=== PATIENT | female | born 1975 | race Native Hawaiian/Other Pacific Islander ===

== ENCOUNTER 2022-09-03 12:24 | Emergency (ER) | payer MEDICARE ==
[~2022-09-03] VITALS: Ht 157.5 cm; Wt 70.1 kg
[2022-09-03 12:25] VITALS: BP 132/84
[2022-09-03] MEDS ORDERED: HYDR-3363 PO (14:45)
[2022-09-03] MEDS ORDERED: PRED20TA PO (14:45)
== END 2022-09-03 15:08 | disposition home or self-care (01) ==
LOC: M ED 12:24
DX: L30.9 Dermatitis, unspecified (principal); K21.9 Gastro-esophageal reflux disease without esophagitis; K50.90 Crohn's disease, unspecified, without complications; Z90.49 Acquired absence of other specified parts of digestive tract

== ENCOUNTER → 2022-10-05 | Outpatient (REF) | payer MEDICARE ==
[~2022-10-05] MED LIST: HYDR-3363 PO; PRED20TA PO
== END ==
LOC: M SFHCDERM 17:41
PROVIDERS: ATTEND Physician Assistant
DX: R21 Rash and other nonspecific skin eruption (principal)

== ENCOUNTER → 2022-10-12 | Outpatient (CLI) | payer MEDICARE ==
[2022-10-12 16:45] LABS: VITAMIN B12 LEVEL 401 PG/ML (211-911)
[2022-10-12 16:46] LABS: FREE T4 1.28 NG/DL (0.89-1.76)
[2022-10-12 19:28] LABS: HIV 1&2 SCREEN CENTAUR NEGATIVE (NEGATIVE)
== END ==
LOC: M LAB 15:26
PROVIDERS: ATTEND Physician Assistant
DX: L28.0 Lichen simplex chronicus (principal); Z79.899 Other long term (current) drug therapy

== ENCOUNTER → 2022-11-29 | Outpatient (REF) | payer MEDICARE, OTHER | LOC: M SFHCDERM 17:49 | PROVIDERS: ATTEND Nurse Practitioner Family | DX: F22 Delusional disorders (principal) ==

== ENCOUNTER 2023-05-01 20:27 | Emergency (ER) | payer OTHER ==
[~2023-05-01] VITALS: Ht 158.8 cm; Wt 65.4 kg
[2023-05-01 20:28] VITALS: TEMP 96.5
[2023-05-01] MEDS ORDERED: SUCR1ORA PO (20:36)
[2023-05-01 21:46] LABS: BASO # 0.1 10^3/uL (0.0-0.2); BASO % 1.2 % (0.0-1.0); EOS # 0.6 10^3/uL (0.0-0.5); EOS % 8.6 % (0.0-3.0); HEMATOCRIT 39.5 % (36.0-47.0); HEMOGLOBIN 13.3 g/dl (12.0-15.5); LYMPH # 2.3 10^3/uL (1.5-5.0); MEAN CORPUSCULAR HEMOGLOBIN 30.1 pg (27.0-33.0); MEAN CORPUSCULAR HGB CONC 33.7 g/dl (32.0-36.5); MEAN CORPUSCULAR VOLUME 89.4 fl (80.0-96.0); MONO # 0.6 10^3/uL (0.0-0.8); MONO % 7.4 % (2.0-8.0); NEUTROPHILS # 3.8 10^3/uL (1.5-8.5); NEUTROPHILS % 51.5 % (36.0-66.0); PLATELET COUNT, AUTOMATED 267 10^3/uL (150-450); RED BLOOD COUNT 4.42 10^6/uL (4.00-5.40); WHITE BLOOD COUNT 7.4 10^3/uL (4.0-10.0)
[2023-05-01] MEDS ORDERED: TETRACAINE 0.5% OPHTH SOLN 4ML OS ONE (22:00)
[2023-05-01] MEDS ORDERED: FLUORESCEIN OPHTH 1MG STRIP OS ONE (22:00)
[2023-05-01 22:14] LABS: LIPASE 54 U/L (12-53)
[2023-05-01 22:16] LABS: ALBUMIN 4.1 G/DL (3.2-5.2); ALKALINE PHOSPHATASE 108 U/L (46-116); ALT/SGPT 15 U/L (7.0-40); AST/SGOT 9 U/L (<34); BILIRUBIN,DIRECT 0.1 MG/DL (<0.4); BILIRUBIN,TOTAL 0.4 MG/DL (0.3-1.2); TOTAL PROTEIN 7.1 G/DL (5.7-8.2)
[2023-05-01 22:18] LABS: RSV AMPLIFICATION NEGATIVE (NEGATIVE)
[2023-05-01] MEDS ORDERED: NS 1,000 ML IV ONE (22:20)
[2023-05-01] MEDS ORDERED: PANTOPRAZOLE 40MG VIAL IV ONE (22:20)
[2023-05-01 23:11] LABS: CPK CREATINE PHOSPHOKINASE 141 U/L (34-145)
[2023-05-01 23:12] LABS: BLOOD UREA NITROGEN 9 MG/DL (9-23); CARBON DIOXIDE LEVEL 24 MMOL/L (20-31); CHLORIDE LEVEL 109 MMOL/L (98-107); CK-MB VALUE MASS < 1.0 NG/ML (<3.6); CREATININE FOR GFR 0.72 MG/DL (0.55-1.30); GLOMERULAR FILTRATION RATE > 60.0 (>58); GLUCOSE, FASTING 74 MG/DL (60-100); POTASSIUM SERUM 3.4 MMOL/L (3.5-5.1); SODIUM LEVEL 142 MMOL/L (136-145)
[2023-05-02] MEDS: GASTROGRAFIN SOLUTION 30ML PO SCH ×2 (00:08→00:33)
[2023-05-02] MEDS ORDERED: MORPHINE 2 MG/ML 1ML VIAL IV ONE (00:20)
[2023-05-02] MEDS ORDERED: ERYTHROMYCIN OPHTH OINT OS ONE (00:35)
[2023-05-02] MEDS ORDERED: ONDANSETRON 4MG 2ML VIAL IV ONE (00:45)
[2023-05-02] MEDS ORDERED: ISOVUE-370 76% 100ML VIAL As Ordered ONE (01:09)
[2023-05-02 02:45] VITALS: BP 102/57; O2SAT 98
[2023-05-02] MEDS ORDERED: SUCR1ORA PO (02:50)
[2023-05-02] MEDS ORDERED: ERYT5OIN25 OP (02:50)
[2023-05-02] MEDS ORDERED: PROT1TAB2 PO (02:50)
[2023-05-02] MEDS ORDERED: ONDA4TAB6 PO (03:03)
== END 2023-05-02 03:06 | disposition home or self-care (01) ==
LOC: M ED 20:27
DX: R55 Syncope and collapse (principal); S05.02XA Injury of conjunctiva and corneal abrasion without foreign body, left eye, initial encounter; K30 Functional dyspepsia; R10.9 Unspecified abdominal pain; K21.9 Gastro-esophageal reflux disease without esophagitis; I45.10 Unspecified right bundle-branch block; W10.8XXA Fall (on) (from) other stairs and steps, initial encounter; Z98.84 Bariatric surgery status; Z79.83 Long term (current) use of bisphosphonates; Z79.810 Long term (current) use of selective estrogen receptor modulators (SERMs); Z79.899 Other long term (current) drug therapy
CPT/HCPCS: 70450; 70486; 71045; 72125; 74177; 80047; 80048; 80076; 81001; 82550; 82553; 83605; 83690; 84484; 85025; 86850; 86900; 86901; 87086; 87631; 93005; 93041; 96361; 96374; 96375; 99285; C9113; J2405; Q9963; Q9967

== ENCOUNTER 2023-06-19 13:10 | Emergency (ER) | payer OTHER ==
[~2023-06-19] VITALS: Ht 157.5 cm; Wt 63.6 kg
[~2023-06-19 13:10] MED LIST changes: +ERYT5OIN25 OP; +ONDA4TAB6 PO; +PROT1TAB2 PO; +SUCR1ORA PO
[2023-06-19] MEDS ORDERED: OMEP10CASR PO (13:28)
[2023-06-19] MEDS ORDERED: ONDANSETRON 4MG 2ML VIAL As Ordered ONE (13:39)
[2023-06-19] MEDS ORDERED: NS 1,000 ML IV ONE (15:20)
[2023-06-19] MEDS ORDERED: PANTOPRAZOLE 40MG VIAL IV ONE (15:20)
[2023-06-19] MEDS ORDERED: ONDANSETRON 4MG 2ML VIAL IV ONE (15:20)
[2023-06-19 15:44] LABS: BASO # 0.1 10^3/uL (0.0-0.2); BASO % 1.3 % (0.0-1.0); EOS # 0.2 10^3/uL (0.0-0.5); EOS % 3.3 % (0.0-3.0); HEMATOCRIT 33.2 % (36.0-47.0); HEMOGLOBIN 11.4 g/dl (12.0-15.5); LYMPH # 1.6 10^3/uL (1.5-5.0); LYMPH % 36.5 % (24.0-44.0); MEAN CORPUSCULAR HEMOGLOBIN 30.6 pg (27.0-33.0); MEAN CORPUSCULAR HGB CONC 34.3 g/dl (32.0-36.5); MEAN CORPUSCULAR VOLUME 89.2 fl (80.0-96.0); MONO # 0.4 10^3/uL (0.0-0.8); MONO % 8.2 % (2.0-8.0); NEUTROPHILS # 2.3 10^3/uL (1.5-8.5); NEUTROPHILS % 50.5 % (36.0-66.0); PLATELET COUNT, AUTOMATED 241 10^3/uL (150-450); RED BLOOD COUNT 3.72 10^6/uL (4.00-5.40); WHITE BLOOD COUNT 4.5 10^3/uL (4.0-10.0)
[2023-06-19 15:56] LABS: INR 1.09; PROTHROMBIN TIME 13.8 SECONDS (12.5-14.5)
[2023-06-19 17:12] LABS: LIPASE 44 U/L (12-53)
[2023-06-19 17:19] LABS: ALBUMIN 3.5 G/DL (3.2-5.2); ALKALINE PHOSPHATASE 76 U/L (46-116); ALT/SGPT 12 U/L (7.0-40); AST/SGOT 18 U/L (<34); BILIRUBIN,DIRECT 0.2 MG/DL (<0.4); BILIRUBIN,TOTAL 0.6 MG/DL (0.3-1.2); BLOOD UREA NITROGEN 8 MG/DL (9-23); CALCIUM LEVEL 8.7 MG/DL (8.5-10.1); CARBON DIOXIDE LEVEL 21 MMOL/L (20-31); CHLORIDE LEVEL 111 MMOL/L (98-107); CREATININE FOR GFR 0.66 MG/DL (0.55-1.30); GLOMERULAR FILTRATION RATE > 60.0 (>58); GLUCOSE, FASTING 76 MG/DL (60-100); POTASSIUM SERUM 4.2 MMOL/L (3.5-5.1); SODIUM LEVEL 145 MMOL/L (136-145); TOTAL PROTEIN 6.2 G/DL (5.7-8.2)
[2023-06-19 18:46] VITALS: BP 130/66; TEMP 97.2; O2SAT 100
== END 2023-06-19 18:48 | disposition home or self-care (01) ==
LOC: EDBD 13:10 → M ED 13:10
DX: R10.12 Left upper quadrant pain (principal); Z98.84 Bariatric surgery status
CPT/HCPCS: 74176; 80048; 80076; 81001; 83690; 85025; 85610; 96361; 96374; 96375; 99285; C9113; J2405

== ENCOUNTER → 2023-07-26 | Outpatient (REF) | payer BC, OTHER ==
[~2023-07-26] MED LIST changes: +OMEP10CASR PO
== END ==
LOC: M SFHCDERM 17:38
PROVIDERS: ATTEND Physician Assistant
DX: L82.1 Other seborrheic keratosis (principal)